=== PATIENT | male | born 1930 | race Caucasian/White ===

== ENCOUNTER → 2018-01-07 | Outpatient (CLI) | payer MEDICARE | END | disposition home or self-care (01) | LOC: RADPV 11:45 | PROVIDERS: ATTEND Internal Medicine Geriatric Medicine | DX: M25.551 Pain in right hip (principal); M25.552 Pain in left hip | CPT/HCPCS: 73521 ==

== ENCOUNTER → 2018-03-12 | Outpatient (CLI) | payer MEDICARE ==
[2018-03-12 15:34] LABS: BASOPHILS % (AUTO) 0.9 % (0.0-2.0); EOSINOPHILS % (AUTO) 2.3 % (1.0-6.0); HEMATOCRIT 30.2 % (41-53); HEMOGLOBIN 9.8 g/dL (13.5-17.5); LYMPHOCYTES # (AUTO) 2.6 K/uL (1.0-4.8); MEAN CORPUSCULAR HEMOGLOBIN 26.9 pg (26.0-34.0); MEAN CORPUSCULAR HGB CONC 32.4 G/dL (31.0-37.0); MEAN CORPUSCULAR VOLUME 83 fL (80-100); MONOCYTES # (AUTO) 0.4 K/uL (0.1-1.0); MONOCYTES % (AUTO) 5.5 % (2.0-9.0); NEUTROPHILS # (AUTO) 3.5 K/uL (1.8-7.7); NEUTROPHILS % (AUTO) 52.3 % (40.0-70.0); PLATELET COUNT (AUTO) 300 K/uL (150-450); RED BLOOD CELL COUNT(AUTO) 3.63 MIL/uL (4.50-5.90); RED CELL DISTRIBUTION WIDTH 15.7 % (11.5-14.5)
[2018-03-12 15:46] LABS: % IRON SATURATION 7.6 % (30-44)
[2018-03-12 15:51] LABS: APPEARANCE,URINE CLEAR (CLEAR); BILIRUBIN,URINE NEGATIVE (NEGATIVE); GLUCOSE, URINE (UA) NEGATIVE (NEGATIVE); KETONES,URINE NEGATIVE (NEGATIVE); LEUKOCYTE ESTERASE ,URINE SMALL (NEGATIVE); NITRATE,URINE NEGATIVE (NEGATIVE); OCCULT BLOOD,URINE NEGATIVE (NEGATIVE); PH,URINE 6.5 (5.0-8.0); PROTEIN,URINE POS 1+ (NEGATIVE); UROBILINOGEN,URINE 0.2 mg/dL (<=1.0)
[2018-03-12 15:55] LABS: BACTERIA,URINE Few /HPF (None Seen); RBC,URINE 0-2 /HPF (0-2); SQUAMOUS EPITHELIAL CELL,UR Few /LPF (None Seen)
[2018-03-12 15:56] LABS: CREATININE,URINE RANDOM 105.1 mg/dL (30.0-125.0); PROTEIN,URINE RANDOM 35 mg/dL (0-11.9)
[2018-03-12 15:58] LABS: ALBUMIN 3.7 g/dL (3.4-5.0); CALCIUM, TOTAL 8.6 mg/dL (8.8-10.5); CREATININE 2.11 mg/dL (0.60-1.30); PHOSPHORUS 3.2 mg/dL (2.5-4.9); POTASSIUM 4.8 mmol/L (3.5-5.1)
[2018-03-14 05:31] LABS: ALPHA-1 (IFE & PEP) 0.2 g/dL (0.0-0.4); GAMMA GLOBULINS (IFE & ELP) 1.1 g/dL (0.4-1.8); IGM (IMMUNOFIXATION) 94 mg/dL (15-143)
== END | disposition home or self-care (01) ==
LOC: RADPV 13:08
PROVIDERS: ATTEND Hospitalist
DX: N28.1 Cyst of kidney, acquired (principal); E11.22 Type 2 diabetes mellitus with diabetic chronic kidney disease; N18.4 Chronic kidney disease, stage 4 (severe); E11.69 Type 2 diabetes mellitus with other specified complication; E03.9 Hypothyroidism, unspecified; I25.10 Atherosclerotic heart disease of native coronary artery without angina pectoris
CPT/HCPCS: 76770; 82570; 82728; 82784; 83540; 83550; 83970; 84155; 84156; 84165; 84166; 84466; 86038; 86160; 86334; 86335; 87086

== ENCOUNTER → 2018-05-29 | Outpatient (CLI) | payer MEDICARE ==
[2018-05-29 15:06] LABS: BASOPHILS % (AUTO) 0.9 % (0.0-2.0); EOSINOPHILS % (AUTO) 2.9 % (1.0-6.0); HEMATOCRIT 34.6 % (41-53); HEMOGLOBIN 11.4 g/dL (13.5-17.5); LYMPHOCYTES # (AUTO) 2.5 K/uL (1.0-4.8); LYMPHOCYTES % (AUTO) 35.3 % (22.0-44.0); MEAN CORPUSCULAR HEMOGLOBIN 29.4 pg (26.0-34.0); MEAN CORPUSCULAR VOLUME 89 fL (80-100); MONOCYTES # (AUTO) 0.4 K/uL (0.1-1.0); NEUTROPHILS # (AUTO) 3.8 K/uL (1.8-7.7); NEUTROPHILS % (AUTO) 54.9 % (40.0-70.0); PLATELET COUNT (AUTO) 269 K/uL (150-450); RED BLOOD CELL COUNT(AUTO) 3.88 MIL/uL (4.50-5.90); RED CELL DISTRIBUTION WIDTH 20.5 % (11.5-14.5)
[2018-05-29 15:07] LABS: % IRON SATURATION 14.5 % (30-44)
[2018-05-29 15:16] LABS: PROTEIN,URINE RANDOM 25 mg/dL (0-11.9)
[2018-05-29 15:17] LABS: APPEARANCE,URINE CLEAR (CLEAR); BILIRUBIN,URINE NEGATIVE (NEGATIVE); GLUCOSE, URINE (UA) 100 mg/dL (NEGATIVE); KETONES,URINE NEGATIVE (NEGATIVE); LEUKOCYTE ESTERASE ,URINE MODERATE (NEGATIVE); NITRATE,URINE NEGATIVE (NEGATIVE); OCCULT BLOOD,URINE NEGATIVE (NEGATIVE); PH,URINE 5.5 (5.0-8.0); PROTEIN,URINE NEGATIVE (NEGATIVE); UROBILINOGEN,URINE 0.2 mg/dL (<=1.0)
[2018-05-29 15:24] LABS: POTASSIUM 4.8 mmol/L (3.5-5.1)
[2018-05-29 15:25] LABS: ALBUMIN 3.7 g/dL (3.4-5.0); CALCIUM, TOTAL 9.2 mg/dL (8.8-10.5); CREATININE 1.96 mg/dL (0.60-1.30); PHOSPHORUS 3.5 mg/dL (2.5-4.9)
[2018-05-29 15:31] LABS: BACTERIA,URINE None Seen /HPF (None Seen); RBC,URINE None Seen /HPF (0-2); SQUAMOUS EPITHELIAL CELL,UR Few /LPF (None Seen)
[2018-05-29 15:34] LABS: URIC ACID 5.3 mg/dL (2.6-7.2)
== END | disposition home or self-care (01) ==
LOC: LABPV 12:08
PROVIDERS: ATTEND Hospitalist
DX: E11.22 Type 2 diabetes mellitus with diabetic chronic kidney disease (principal); N18.4 Chronic kidney disease, stage 4 (severe); E78.1 Pure hyperglyceridemia; D63.1 Anemia in chronic kidney disease
CPT/HCPCS: 82570; 82728; 83036; 83540; 83550; 84156; 84466; 84550; 87086

== ENCOUNTER 2018-07-24 13:11 | Inpatient (IN) | payer MEDICARE ==
[~2018-07-24] VITALS: Ht 190.5 cm; Wt 111.5 kg
[2018-07-24] MEDS ORDERED: RIVA1PAT9 TD (13:28)
[2018-07-24] MEDS ORDERED: GABA-531 PO (13:28)
[2018-07-24] MEDS ORDERED: PANT20TA PO (13:28)
[2018-07-24] MEDS ORDERED: MEMA10TA11 PO (13:28)
[2018-07-24] MEDS ORDERED: TAMS0.4C32 PO (13:28)
[2018-07-24] MEDS ORDERED: LINA5TAB PO (13:28)
[2018-07-24] MEDS ORDERED: DICL50TA9 PO (13:28)
[2018-07-24] MEDS ORDERED: FENO145T PO (13:28)
[2018-07-24] MEDS ORDERED: LEVO150 PO (13:28)
[2018-07-24] MEDS ORDERED: COLE3.75 PO (13:28)
[2018-07-24] MEDS ORDERED: SODIUM CHLORIDE 0.9% 1,000 ML IV ONE ×2 (14:00→16:30)
[2018-07-24] MEDS ORDERED: INSULIN REGULAR, HUMAN 100 UNITS/ML IVP ONE (14:00)
[2018-07-24 14:46] LABS: BASOPHILS % (AUTO) 0.9 % (0.0-2.0); EOSINOPHILS % (AUTO) 2.2 % (1.0-6.0); HEMATOCRIT 28.9 % (41-53); HEMOGLOBIN 9.4 g/dL (13.5-17.5); LYMPHOCYTES # (AUTO) 2.2 K/uL (1.0-4.8); LYMPHOCYTES % (AUTO) 29.3 % (22.0-44.0); MEAN CORPUSCULAR HEMOGLOBIN 28.4 pg (26.0-34.0); MEAN CORPUSCULAR HGB CONC 32.5 G/dL (31.0-37.0); MEAN CORPUSCULAR VOLUME 87 fL (80-100); MONOCYTES # (AUTO) 0.4 K/uL (0.1-1.0); MONOCYTES % (AUTO) 5.7 % (2.0-9.0); NEUTROPHILS # (AUTO) 4.7 K/uL (1.8-7.7); NEUTROPHILS % (AUTO) 61.9 % (40.0-70.0); PLATELET COUNT (AUTO) 337 K/uL (150-450); RED BLOOD CELL COUNT(AUTO) 3.31 MIL/uL (4.50-5.90); RED CELL DISTRIBUTION WIDTH 15.1 % (11.5-14.5)
[2018-07-24 14:50] LABS: GLUCOSE,POINT OF CARE 598 MG/DL (70-110)
[2018-07-24 15:03] LABS: CALCIUM, TOTAL 8.6 mg/dL (8.8-10.5); CREATININE 2.54 mg/dL (0.60-1.30); POTASSIUM 4.5 mmol/L (3.5-5.1)
[2018-07-24 16:09] LABS: GLUCOSE,POINT OF CARE 420 MG/DL (70-110)
[2018-07-24] MEDS ORDERED: DEXTROSE 50%-WATER 25 GM/50 ML SYRINGE IVP PRN ×2 (16:30→18:30)
[2018-07-24] MEDS ORDERED: ACETAMINOPHEN 325 MG TABLET PO PRN ×2 (16:30→18:30)
[2018-07-24] MEDS ORDERED: INSULIN LISPRO 100 UNITS/ML SQ PRN (16:30)
[2018-07-24] MEDS ORDERED: ONDANSETRON HCL 4 MG/2 ML VIAL IVP PRN ×2 (16:30→18:30)
[2018-07-24 17:30] VITALS: BP 127/62
[2018-07-24] MEDS ORDERED: HEPARIN SODIUM,PORCINE 5,000 UNITS/ML VIAL SQ SCH (18:30)
[2018-07-24] MEDS ORDERED: ALBUTEROL SULFATE 2.5 MG/0.5 ML NEB SOLUTION NEB PRN (18:30)
[2018-07-24] MEDS ORDERED: BISACODYL 10 MG RECTAL RECTAL SUPPOSITORY PR PRN (18:30)
[2018-07-24] MEDS ORDERED: IPRATROPIUM BROMIDE 0.5 MG/2.5 ML NEB SOLUTION NEB PRN (18:30)
[2018-07-24] MEDS ORDERED: MAGNESIUM HYDROXIDE SUSPENSION 30 ML UDCUP PO PRN (18:30)
[2018-07-24] MEDS ORDERED: POTASSIUM CHL 20 MEQ/0.45% NS 1,000 ML IV ONE (18:45)
[2018-07-24 20:06] VITALS: BP 133/56
[2018-07-24] MEDS: INSULIN LISPRO 100 UNITS/ML SQ PRN (20:10)
[2018-07-24 20:24] LABS: GLUCOMETER DEV NAME(LOC) 6N 1E; GLUCOSE,POINT OF CARE 470 MG/DL (70-110)
[2018-07-24] MEDS ORDERED: MEMANTINE HCL 10 MG TABLET PO SCH (21:00)
[2018-07-24] MEDS ORDERED: INSULIN GLARGINE,HUM.REC.ANLOG 100 UNITS/ML SQ SCH ×2 (21:00)
[2018-07-24] MEDS: MEMANTINE HCL 10 MG TABLET PO SCH (21:28)
[2018-07-24 21:54] LABS: GLUCOMETER DEV NAME(LOC) 6N 2D; GLUCOSE,POINT OF CARE 474 MG/DL (70-110)
[2018-07-25 00:02] VITALS: BP 129/59
[2018-07-25 04:41] VITALS: BP 134/67
[2018-07-25 06:07] LABS: BASOPHILS % (AUTO) 0.7 % (0.0-2.0); EOSINOPHILS % (AUTO) 3.5 % (1.0-6.0); HEMATOCRIT 25.1 % (41-53); HEMOGLOBIN 8.2 g/dL (13.5-17.5); LYMPHOCYTES # (AUTO) 3.5 K/uL (1.0-4.8); LYMPHOCYTES % (AUTO) 45.7 % (22.0-44.0); MEAN CORPUSCULAR HEMOGLOBIN 28.3 pg (26.0-34.0); MEAN CORPUSCULAR HGB CONC 32.8 G/dL (31.0-37.0); MEAN CORPUSCULAR VOLUME 86 fL (80-100); MONOCYTES # (AUTO) 0.5 K/uL (0.1-1.0); MONOCYTES % (AUTO) 6.5 % (2.0-9.0); NEUTROPHILS # (AUTO) 3.4 K/uL (1.8-7.7); NEUTROPHILS % (AUTO) 43.6 % (40.0-70.0); PLATELET COUNT (AUTO) 287 K/uL (150-450); RED BLOOD CELL COUNT(AUTO) 2.92 MIL/uL (4.50-5.90); RED CELL DISTRIBUTION WIDTH 15.4 % (11.5-14.5)
[2018-07-25 06:17] LABS: HEMOGLOBIN A1C 15.7 % (4.5-6.2)
[2018-07-25] MEDS: LEVOTHYROXINE SODIUM 150 MCG TABLET PO SCH (06:24)
[2018-07-25] MEDS: INSULIN LISPRO 100 UNITS/ML SQ PRN ×4 (06:28→20:48)
[2018-07-25 06:34] LABS: CALCIUM, TOTAL 8.7 mg/dL (8.8-10.5); CHOL/HDL RATIO 4.7 (4.2-7.3); CREATININE 2.1 mg/dL (0.60-1.30); MAGNESIUM 1.7 mg/dL (1.80-2.40); POTASSIUM 3.8 mmol/L (3.5-5.1); THYROID STIMULATING HORMONE 5.28 uIU/mL (0.36-3.74)
[2018-07-25 07:14] LABS: GLUCOMETER DEV NAME(LOC) 6N 1E; GLUCOSE,POINT OF CARE 285 MG/DL (70-110)
[2018-07-25 07:42] VITALS: BP 135/61
[2018-07-25] MEDS ORDERED: TAMSULOSIN HCL 0.4 MG CAPSULE PO SCH (09:00)
[2018-07-25] MEDS ORDERED: RIVASTIGMINE 13.3 MG TD SCH (09:00)
[2018-07-25] MEDS: PANTOPRAZOLE SODIUM 40 MG DR TABLET PO SCH (09:27)
[2018-07-25] MEDS: HEPARIN SODIUM,PORCINE 5,000 UNITS/ML VIAL SQ SCH ×2 (09:27→20:49)
[2018-07-25] MEDS: MEMANTINE HCL 10 MG TABLET PO SCH ×2 (09:27→20:48)
[2018-07-25] MEDS: GABAPENTIN 300 MG CAPSULE PO SCH (09:28)
[2018-07-25] MEDS ORDERED: EPOETIN ALFA 10,000 UNITS/ML VIAL SQ ONE (11:15)
[2018-07-25 11:34] VITALS: BP 145/58
[2018-07-25] MEDS ORDERED: ACETAMINOPHEN/CODEINE 300-15 MG TABLET PO PRN (11:45)
[2018-07-25] MEDS ORDERED: MAGNESIUM OXIDE 400 MG TABLET PO ONE (12:00)
[2018-07-25 12:12] LABS: BILIRUBIN,URINE NEGATIVE (NEGATIVE); GLUCOSE, URINE (UA) >=1000 mg/dL (NEGATIVE); KETONES,URINE NEGATIVE (NEGATIVE); LEUKOCYTE ESTERASE ,URINE SMALL (NEGATIVE); NITRATE,URINE NEGATIVE (NEGATIVE); OCCULT BLOOD,URINE NEGATIVE (NEGATIVE); PH,URINE 5.5 (5.0-8.0); PROTEIN,URINE NEGATIVE (NEGATIVE); UROBILINOGEN,URINE 0.2 mg/dL (<=1.0)
[2018-07-25 12:45] LABS: APPEARANCE,URINE HAZY (CLEAR)
[2018-07-25 12:46] LABS: BACTERIA,URINE None Seen /HPF (None Seen); RBC,URINE None Seen /HPF (0-2); SQUAMOUS EPITHELIAL CELL,UR Few /LPF (None Seen)
[2018-07-25] MEDS: LinaGLIPtin 5 MG TABLET PO SCH (14:04)
[2018-07-25 15:34] VITALS: BP 109/59
[2018-07-25] MEDS ORDERED: SODIUM CHLORIDE 0.9% 500 ML IV ONE (15:45)
[2018-07-25 19:26] LABS: GLUCOMETER DEV NAME(LOC) 6N 1E; GLUCOSE,POINT OF CARE 350 MG/DL (70-110)
[2018-07-25] MEDS ORDERED: INSULIN GLARGINE,HUM.REC.ANLOG 100 UNITS/ML SQ SCH ×2 (21:00)
[2018-07-25 21:06] LABS: GLUCOMETER DEV NAME(LOC) 6N 1E; GLUCOSE,POINT OF CARE 249 MG/DL (70-110)
[2018-07-25 23:46] VITALS: BP 110/60
[2018-07-26 02:00] LABS: GLUCOMETER DEV NAME(LOC) 6N 1E; GLUCOSE,POINT OF CARE 263 MG/DL (70-110)
[2018-07-26 05:09] VITALS: BP 145/77
[2018-07-26 06:20] LABS: EOSINOPHILS % (AUTO) 3.2 % (1.0-6.0); HEMATOCRIT 26.5 % (41-53); HEMOGLOBIN 8.8 g/dL (13.5-17.5); LYMPHOCYTES # (AUTO) 3.5 K/uL (1.0-4.8); LYMPHOCYTES % (AUTO) 43.7 % (22.0-44.0); MEAN CORPUSCULAR HEMOGLOBIN 28.4 pg (26.0-34.0); MEAN CORPUSCULAR HGB CONC 33.2 G/dL (31.0-37.0); MEAN CORPUSCULAR VOLUME 86 fL (80-100); MONOCYTES # (AUTO) 0.5 K/uL (0.1-1.0); MONOCYTES % (AUTO) 6.3 % (2.0-9.0); NEUTROPHILS # (AUTO) 3.7 K/uL (1.8-7.7); NEUTROPHILS % (AUTO) 45.8 % (40.0-70.0); PLATELET COUNT (AUTO) 297 K/uL (150-450); RED CELL DISTRIBUTION WIDTH 14.8 % (11.5-14.5)
[2018-07-26] MEDS: LEVOTHYROXINE SODIUM 150 MCG TABLET PO SCH (06:25)
[2018-07-26] MEDS: INSULIN LISPRO 100 UNITS/ML SQ PRN ×2 (06:26→11:57)
[2018-07-26 06:37] LABS: CREATININE 2.07 mg/dL (0.60-1.30); POTASSIUM 3.9 mmol/L (3.5-5.1)
[2018-07-26 06:51] LABS: % IRON SATURATION 2.9 % (30-44)
[2018-07-26 07:44] VITALS: BP 134/57
[2018-07-26] MEDS: LinaGLIPtin 5 MG TABLET PO SCH (08:18)
[2018-07-26] MEDS: MEMANTINE HCL 10 MG TABLET PO SCH (08:18)
[2018-07-26] MEDS: GABAPENTIN 300 MG CAPSULE PO SCH (08:18)
[2018-07-26] MEDS: PANTOPRAZOLE SODIUM 40 MG DR TABLET PO SCH (08:18)
[2018-07-26] MEDS: HEPARIN SODIUM,PORCINE 5,000 UNITS/ML VIAL SQ SCH (08:18)
[2018-07-26] MEDS ORDERED: SOD FERRIC GLUC COMPLX/SUCROSE 125 MG in SODIUM CHLORIDE 0.9% 100 ML IV SCH (09:45)
[2018-07-26] MEDS ORDERED: INSLAN SQ (09:53)
[2018-07-26] MEDS ORDERED: COLE625 PO (10:59)
[2018-07-26] MEDS ORDERED: MEMA28CA5 PEG (10:59)
[2018-07-26 11:12] LABS: GLUCOMETER DEV NAME(LOC) 6N 2D; GLUCOSE,POINT OF CARE 163 MG/DL (70-110)
[2018-07-27 01:20] LABS: GLUCOMETER DEV NAME(LOC) 6N 2D; GLUCOSE,POINT OF CARE 228 MG/DL (70-110)
== END 2018-07-26 13:06 | disposition home health service (06) | DRG 683 ==
LOC: EMS 13:12 → 6N 16:19
PROVIDERS: ADMIT Internal Medicine Geriatric Medicine; ATTEND Internal Medicine Geriatric Medicine
PROC: 5A09357 Assistance with Respiratory Ventilation, Less than 24 Consecutive Hours, Continuous Positive Airway Pressure (ICD-10-PCS; principal; 2018-07-25)
DX: N17.9 Acute kidney failure, unspecified (principal); E87.1 Hypo-osmolality and hyponatremia; E11.65 Type 2 diabetes mellitus with hyperglycemia; N18.4 Chronic kidney disease, stage 4 (severe); N28.1 Cyst of kidney, acquired; I25.10 Atherosclerotic heart disease of native coronary artery without angina pectoris; E11.22 Type 2 diabetes mellitus with diabetic chronic kidney disease; E78.5 Hyperlipidemia, unspecified; N40.0 Benign prostatic hyperplasia without lower urinary tract symptoms; E03.9 Hypothyroidism, unspecified; I12.9 Hypertensive chronic kidney disease with stage 1 through stage 4 chronic kidney disease, or unspecified chronic kidney disease; D63.1 Anemia in chronic kidney disease; G47.33 Obstructive sleep apnea (adult) (pediatric); D50.9 Iron deficiency anemia, unspecified; E11.42 Type 2 diabetes mellitus with diabetic polyneuropathy; C61 Malignant neoplasm of prostate; F03.90 Unspecified dementia, unspecified severity, without behavioral disturbance, psychotic disturbance, mood disturbance, and anxiety; Z88.0 Allergy status to penicillin; Z88.8 Allergy status to other drugs, medicaments and biological substances; Z87.891 Personal history of nicotine dependence; Z90.49 Acquired absence of other specified parts of digestive tract; Z87.440 Personal history of urinary (tract) infections; Z80.0 Family history of malignant neoplasm of digestive organs; Z80.41 Family history of malignant neoplasm of ovary; Z79.4 Long term (current) use of insulin; Z85.46 Personal history of malignant neoplasm of prostate; Z98.61 Coronary angioplasty status
CPT/HCPCS: 83036; 83540; 83550; 83735; 84443; 93005; 93306; 93925; 94660; 96361; 96374; 97162; 97535; 99285; J0885; J1644; J1815; J2916; J3480; J7030; J7040; J7050